=== PATIENT | male | born 1995 | race Caucasian/White ===

== ENCOUNTER 2021-11-28 09:19 | Emergency (ER) | payer OTHER ==
[~2021-11-28] VITALS: Ht 182.9 cm; Wt 79.1 kg
[2021-11-28 09:42] VITALS: BP 151/78
[2021-11-28] MEDS ORDERED: CEPH-510 PO (11:02)
[2021-11-28] MEDS ORDERED: TETANUS-DIPTH-ACEL PERTUSSIS 0.5ML SYR Tdap IM ONE (11:15)
== END 2021-11-28 11:22 | disposition home or self-care (01) ==
LOC: ER 09:19
DX: S01.81XA Laceration without foreign body of other part of head, initial encounter (principal); W22.8XXA Striking against or struck by other objects, initial encounter; Y93.89 Activity, other specified; Y92.89 Other specified places as the place of occurrence of the external cause; Y99.8 Other external cause status
CPT/HCPCS: 12013; 90471; 90715

== ENCOUNTER 2021-12-04 16:04 | Emergency (ER) | payer OTHER ==
[~2021-12-04 16:04] MED LIST: CEPH-510 PO
[2021-12-04 16:51] VITALS: BP 136/77
== END 2021-12-04 16:55 | disposition home or self-care (01) ==
LOC: ER 16:04
DX: S01.81XD Laceration without foreign body of other part of head, subsequent encounter (principal); X58.XXXD Exposure to other specified factors, subsequent encounter